=== PATIENT | male | born 1980 | race Caucasian/White ===

== ENCOUNTER 2019-08-03 07:00 | Day surgery (SDC) | payer MEDICAID ==
[~2019-08-03 07:00] MED LIST: Midazolam 1 MG/ML 2 ML SDV ONE; fentaNYL 100 MCG/2 ML SDV ONE
[2019-08-03] MEDS ORDERED: Midazolam 1 MG/ML 2 ML SDV IV ONE ×3 (07:01→07:34)
[2019-08-03] MEDS ORDERED: fentaNYL 100 MCG/2 ML SDV IV ONE ×3 (07:01→07:33)
[2019-08-03] MEDS ORDERED: Dextrose 5%-0.45% NaCl 1,000 ML IV SCH (07:19)
--- NOTE | 2019-08-03 15:08 | OR ---
DATE: 08/03/2019 PROCEDURE DONE: Esophageal dilatation. INSTRUMENT USED: Paige bougie dilator, [place] size 50. PREMEDICATIONS: Done after EGD. INDICATION: Constricting Schatzki ring. PROCEDURE IN DETAIL: Esophageal dilatation was done with ease using [place] size 50 dilator. No blood was noted at dilated tip after completion. IMPRESSION: Constricting Schatzki ring. The patient tolerated the procedure well. [facility] /[id number]
--- NOTE | 2019-08-03 15:55 | OR ---
DATE: 08/03/2019 PROCEDURE: Esophagogastroduodenoscopy and multiple pinch biopsies. INSTRUMENT USED: [id number]-HQ190 Olympus video panendoscope. PREMEDICATIONS: No oral or topical anesthesia used. Fentanyl 100 mcg intravenous, Versed 2 mg intravenous. The procedure was done under pulse oximetry, BP recording, and monitoring specialist. INDICATION: The patient with persistent dysphagia, unexplained, and not responsive to medical measures. The esophagogastroduodenoscopy is performed for detection of any active erosive lesions, Rojas esophagus and/or malignancy also under consideration, H. pylori status to be determined, esophageal dilatations as indicated, endoscopic hemostasis therapy as needed. PROCEDURE IN DETAIL: The scope was passed with ease. Adequate visualization of the esophagus was made proximal to distal areas. No upper esophageal lesions identified. No uphill or downhill esophageal varices. No Aisha-Wade tear. No evidence of erosive esophagitis by [place] criteria. No esophageal polyp or tumor mass identified. Constricting Schatzki ring was noted. The tip of the scope was passed with ease to visualize the gastric mucosa. No proximal gastric varices noted. Gastric fundus examination by retroflexion showed no polypoid lesions. No gastric ulcer, malignant mass, or vascular ectasia identified. Duodenal bulb showed no ulcer. Visualized second part of the duodenum was unremarkable. Multiple pinch biopsies were taken from the gastric antrum and proximal body and sent for PyloriTek test for H. pylori and histopathology. Four-quadrant biopsies were taken from the distal and proximal esophagus and sent for any histopathologic evidence of esophageal eosinophilia. No bleeding was noted from any of the visualized areas at the completion of examination. Photographs were taken of the duodenal bulb, gastric antrum, fundus, and distal esophagus. IMPRESSION: Constricting Schatzki's Ring. The patient tolerated the procedure well. [facility] /[id number]
== END 2019-08-03 09:55 | disposition home or self-care (01) ==
LOC: DL.ENDO 07:00
PROVIDERS: ATTEND Internal Medicine Gastroenterology
DX: K22.2 Esophageal obstruction (principal); E73.9 Lactose intolerance, unspecified; Z90.49 Acquired absence of other specified parts of digestive tract
CPT/HCPCS: 43220; 43239; 87077; J2250; J3010; J7042